=== PATIENT | male | born 1970 | race African-American/Black ===

== ENCOUNTER 2017-08-06 09:41 | Emergency (ER) | payer SELFPAY ==
[2017-08-06] MEDS ORDERED: Amoxicillin/Potassium Clav 875 MG TAB ONE (10:58)
[2017-08-06] MEDS ORDERED: Acetaminophen/Codeine 30-300mg Tablet ONE (11:06)
== END 2017-08-06 11:09 | disposition home or self-care (01) ==
LOC: NAV ERS 09:41
DX: K02.9 Dental caries, unspecified (principal); K21.9 Gastro-esophageal reflux disease without esophagitis; I10 Essential (primary) hypertension
CPT/HCPCS: 99283

== ENCOUNTER 2018-10-20 09:37 | Emergency (ER) | payer SELFPAY ==
[2018-10-20] MEDS ORDERED: metroNIDAZOLE 500 MG TAB ONE (10:35)
[2018-10-20 11:18] LABS: Bilirubin Negative (Negative); Blood, Urine Small (Negative); Clarity Cloudy (Clear); Glucose, Urine (Dipstick) Negative (Negative); Leukocyte Large (Negative); Nitrite Negative (Negative); Protein, Urine (Dipstick) Trace mg/dL (Neg-Trace); Urobilinogen 0.2 mg/dL (0.2-1.0)
[2018-10-20 11:28] LABS: RBC/HPF 0-3 HPF (0-3)
[2018-10-20 11:29] LABS: Bacteria/HPF 1+ HPF (None Seen); Other Microscopic Description NO
[2018-10-24 01:50] LABS: Chlam.trachomatis by PCR,Urine Inconclusive (NotDetected)
== END 2018-10-20 10:45 | disposition home or self-care (01) ==
LOC: NAV ERS 09:37
DX: R36.9 Urethral discharge, unspecified (principal); K21.9 Gastro-esophageal reflux disease without esophagitis; I10 Essential (primary) hypertension
CPT/HCPCS: 81003; 81015; 87491; 87591; 99283

== ENCOUNTER 2021-02-13 15:33 | Emergency (ER) | payer SELFPAY ==
[2021-02-14 15:12] LABS: SARS-CoV-2 PCR by NAA DETECTED (NotDetected)
== END 2021-02-13 16:15 | disposition home or self-care (01) ==
LOC: NAV ERS 15:33
DX: U07.1 COVID-19 (principal); K02.9 Dental caries, unspecified; K03.81 Cracked tooth; I10 Essential (primary) hypertension; K21.9 Gastro-esophageal reflux disease without esophagitis; Z20.822 Contact with and (suspected) exposure to COVID-19
CPT/HCPCS: 99283; U0003; U0005

== ENCOUNTER 2024-05-10 18:18 | Emergency (ER) | payer SELFPAY ==
[2024-05-10] MEDS ORDERED: Orphenadrine Citrate 60 MG/2 ML VIAL ONE (19:01)
== END 2024-05-10 19:35 | disposition home or self-care (01) ==
LOC: NAV ERS 18:18
DX: M25.511 Pain in right shoulder (principal); I10 Essential (primary) hypertension
CPT/HCPCS: 96372; 99283; J2360